=== PATIENT | female | born 1990 | race Caucasian/White ===

== ENCOUNTER 2021-11-17 11:36 | Emergency (ER) | payer BC, MEDICAID ==
[~2021-11-17] VITALS: Ht 144.8 cm; Wt 47.6 kg
[2021-11-17 11:49] VITALS: BP_SYST 108
--- NOTE | 2021-11-17 11:53 | NUR ---
Triaged pt and placed in waiting room until bed becomes available. Pt c/o cramping and flank pain x2 days and is constant that started abruptly. Pt is currently 11 weeks and it is her 4th . Never had a miscarriage or before. Pt is A&Ox4. Skin intact. VSS. Ambulatory with steady gait. Accompanied by . NKA. No known medical conditions. No chest pain and no sob. Denies n/v. No vaginal bleeding.
--- NOTE | 2021-11-17 12:16 | NUR ---
Urine done and results were positive. Urine sent to lab.
--- NOTE | 2021-11-17 12:21 | NUR ---
Patient to ER bed 3 to gown for evaluation. Side rails up. Report given to Kalpana ORELLANA.
--- NOTE | 2021-11-17 12:24 | NUR ---
RECEIVED PT FROM ADDY ORELLANA. PT IS BEING SEEN FOR FLANK PAIN 12/31. DENIES PAIN AT THIS TIME. PT STATES SHE IS 11 WKS , PT'S HCG URINE TEST IS POSITIVE. PT IS AAOX4, RESP E/U. ON R/A. NO COUGH OR SOB. NO C/O VAGINAL BLEEDING. SKIN INTACT, NO EDEMA. DISTAL PULSE NORMAL, SKIN WARM. SIDE RAILS UP X2.
[2021-11-17 12:32] LABS: BILIRUBIN,URINE NEGATIVE (NEGATIVE); BLOOD, URINE 1+ (NEGATIVE); COLOR,URINE YELLOW (YELLOW); GLUCOSE,URINE NEGATIVE (NEGATIVE); KETONES,URINE 2+ (NEGATIVE); LEUKOCYTE ESTERASE ,URINE 2+ (NEGATIVE); NITRITE, URINE NEGATIVE (NEGATIVE); PROTEIN URINE NEGATIVE (NEGATIVE); UROBILINOGEN,URINE 0.2 (0.2-1.0)
[2021-11-17 12:40] LABS: CLARITY/URINE SLIGHTLY HAZY (CLEAR)
[2021-11-17 13:16] LABS: BASOPHILS % (AUTO) 0.3 % (0.0-2.0); EOSINOPHILS % (AUTO) 0.4 % (0.0-4.0); HEMATOCRIT 30.6 % (36-48); HEMOGLOBIN 10.1 g/dL (12.0-16.0); LYMPHOCYTES # (AUTO) 1.5 K/uL (1.0-5.5); LYMPHOCYTES % (AUTO) 17.8 % (20.5-51.5); MEAN CORPUSCULAR HEMOGLOBIN 24 pg (27-31); MEAN CORPUSCULAR HGB CONC 33 % (32-36); MEAN CORPUSCULAR VOLUME 73 fL (79.0-98.0); MONOCYTES # (AUTO) 0.5 K/uL (0.0-1.0); MONOCYTES % (AUTO) 5.7 % (1.7-9.3); NEUTROPHILS # (AUTO) 6.6 K/uL (1.8-7.7); NEUTROPHILS % (AUTO) 75.8 % (40.0-70.0); PLATELET COUNT (AUTO) 236 K/uL (130-430); RED BLOOD CELL COUNT(AUTO) 4.19 MIL/uL (4.2-6.2); RED CELL DISTRIBUTION WIDTH 20.3 % (9.0-15.0); WHITE BLOOD COUNT (AUTO) 8.7 K/uL (4.8-10.8)
[2021-11-17 13:37] LABS: CALCIUM 8.8 mg/dL (8.4-11.0); CREATININE 0.61 mg/dL (0.55-1.30); POTASSIUM 3.4 mmol/L (3.5-5.1)
[2021-11-17 13:37] LABS: BACTERIA,URINE FEW /HPF (None Seen)
[2021-11-17] MEDS ORDERED: D5LR 1,000 ML IV ONE (14:00)
[2021-11-17] MEDS ORDERED: cefTRIAXone 1 GM in D5W 50 ML IV ONE (14:00)
[2021-11-17] MEDS ORDERED: CEPH-548 PO (14:02)
[2021-11-17 14:07] LABS: ALBUMIN 3.2 g/dL (3.4-4.8); TOTAL BILIRUBIN 0.3 mg/dL (0.0-1.0)
--- NOTE | 2021-11-17 14:25 | NUR ---
PT TAKEN FOR [facility].
[2021-11-17] MEDS ORDERED: cefTRIAXone 1 GM VIAL ONE (14:34)
--- NOTE | 2021-11-17 14:47 | NUR ---
PT BACK FROM [facility]
--- NOTE | 2021-11-17 15:11 | NUR ---
# 20 gauge angiocath placed to right AC. Use of asceptic technique. Opsite placed over site. Blood return noted. Flushed with 10 cc of normal saline. No evidence of infiltration noted. Patient tolerated well.
[2021-11-17 17:37] VITALS: BP_SYST 96
--- NOTE | 2021-11-17 17:37 | NUR ---
Patient given written and verbal discharge instructions and verbalizes understanding. ER MD discussed with patient the results and treatment provided. Patient in stable condition. ID arm band removed. IV catheter removed intact and dressing applied, no active bleeding. Rx ofkelflex given. Patient educated on pain management and to follow up with PMD. Pain Scale 0/10 Opportunity for questions provided and answered. Medication side effect fact sheet provided.
--- NOTE | 2021-12-01 09:40 | NUR ---
LR START TIME 1448, END TIME 1548 CEFTRIAXONE START TIME 1448, END TIME 1548
== END 2021-11-17 17:37 | disposition home or self-care (01) ==
LOC: SED 11:36
DX: O20.0 Threatened abortion (principal); O23.41 Unspecified infection of urinary tract in pregnancy, first trimester; N39.0 Urinary tract infection, site not specified; Z3A.11 11 weeks gestation of pregnancy
CPT/HCPCS: 99284; 96365; 76801; 80053; 81000; 84702; 83690; 85025; 86901; 87086; 36415; 76817; 81025; J0696